=== PATIENT | male | born 1980 | race Caucasian/White ===

== ENCOUNTER 2020-04-29 03:34 | Emergency (ER) | payer SELFPAY ==
[2020-04-29] MEDS ORDERED: LORazepam 0.5 MG Tab PO ONE (04:19)
--- NOTE | 2020-04-29 04:30 | EDM.PDOC ---
ED HPI GENERAL MEDICAL PROBLEM - General Chief Complaint: General Stated Complaint: KADENKES Time Seen by Provider: 04/29/20 04:00 Source of Information: Reports: Patient, RN, RN Notes Reviewed History Limitations: Reports: No Limitations - History of Present Illness INITIAL COMMENTS - FREE TEXT/NARRATIVE: Vinicius presents to the ED with complaints of feeling "shaky". Symptoms started last night at 00:00 when Vinicius went to bed. He states that he feels nauseous with some epigastric tenderness. He admits to feeling anxious, dizzy, and weak. He felt fine yesterday and ate supper well. Denies any drug or alcohol use. Did consume a [employer] coffee (energy drink) on friday morning around 9am and again at 1600. thinks his heart may have been "fluttering" afterwards. Had a small bout of diarrhea after midnight. Denies any cardiac history. States a history of anxiety and was on "a really small pill" once daily in early 2019 that he felt did not help his anxiety. Vinicius is from [place], [place] and is up in [facility] for 2 weeks with family. Denies any fights, concerns, or issues with family or vacation stay. Also feels he may be voiding more since midnight. - Related Data Allergies Allergy/AdvReac Type Severity Reaction Status Date / Time No Known Allergies Allergy Verified 04/29/20 03:47 Home Meds: Home Meds Albuterol Sulfate [Proair Respiclick] 90 mcg IH ASDIRECTED 04/29/20 [History] Past Medical History Respiratory History: Reports: Asthma Musculoskeletal History: Reports: Fracture Psychiatric History: Reports: Anxiety, PTSD - Infectious Disease History Infectious Disease History: Reports: Chicken Pox Social & Family History - Tobacco Use Smoking Status *Q: Former Smoker Used Tobacco, but Quit: Yes Month/Year Tobacco Last Used: 2011 - Caffeine Use Caffeine Use: Reports: Coffee - Recreational Drug Use Recreational Drug Use: No ED ROS GENERAL - Review of Systems Review Of Systems: See Below Constitutional: Reports: Weakness HEENT: Reports: No Symptoms Respiratory: Reports: Shortness of Breath (at times) Cardiovascular: Reports: Palpitations Endocrine: Reports: No Symptoms GI/Abdominal: Reports: Diarrhea, Nausea : Reports: Other (sense of increase UOP) Musculoskeletal: Reports: No Symptoms Skin: Reports: No Symptoms Neurological: Reports: Dizziness Psychiatric: Reports: Anxiety Hematologic/Lymphatic: Reports: No Symptoms ED EXAM, GENERAL - Physical Exam Exam: See Below Exam Limited By: No Limitations General Appearance: Alert, Anxious Eye Exam: Bilateral Eye: PERRL Ears: Normal External Exam, Normal Canal, Hearing Grossly Normal, Normal TMs Nose: Normal Inspection, Normal Mucosa Throat/Mouth: Normal Inspection, Normal Oropharynx Head: Atraumatic, Normocephalic Neck: Supple, Non-Tender Respiratory/Chest: Lungs Clear, Normal Breath Sounds, Chest Non-Tender Cardiovascular: Normal Peripheral Pulses, Regular Rate, Rhythm, Other ( occassional PAC) Peripheral Pulses: 2+: Radial (L), Radial (R) GI/Abdominal: Normal Bowel Sounds, Soft, Tender, Other (tenderness at the epigastric region) (Male) Exam: Deferred Rectal (Males) Exam: Deferred Extremities: Normal Inspection Neurological: Alert, Oriented Psychiatric: Normal Affect, Anxious Skin Exam: Warm, Dry, Intact Lymphatic: No Adenopathy Course - Vital Signs Last Recorded V/S: Last Vital Signs Temp 96.5 F L 04/29/20 03:43 Pulse 78 04/29/20 04:55 Resp 20 04/29/20 03:43 BP 123/63 04/29/20 04:55 Pulse Ox 99 04/29/20 05:27 Orthostatic Blood Pressure [ 125/86 Standing] Orthostatic Blood Pressure [ 132/85 Sitting] Orthostatic Blood Pressure [ 125/77 Supine] - Orders/Labs/Meds Orders: Active Orders 24 hr Category Date Time Status Orthostatic Vital Signs [RC] ASDIRECTED Care 04/29/20 05:19 Active Sodium Chloride 0.9% [Normal Saline] 1,000 ml Med 04/29/20 05:45 Active IV ASDIRECTED Medication Orders Sodium Chloride (Normal Saline) 1,000 mls @ 999 mls/hr IV ASDIRECTED PRIYANKA Last Admin: 04/29/20 05:40 Dose: 999 mls/hr Labs: Laboratory Tests 04/29/20 04/29/20 04/29/20 Range/Units 04:26 04:30 04:30 WBC 11.9 H (4.5-11.0) K/uL RBC 5.14 (4.30-5.90) M/uL Hgb 15.1 H (12.0-15.0) g/dL Hct 45.5 (40.0-54.0) % MCV 89 (80-98) fL MCH 29 (27-31) pg MCHC 33 (32-36) % Plt Count 287 (150-400) K/uL Neut % (Auto) 86 H (36-66) % Lymph % (Auto) 8 L (24-44) % Randolph % (Auto) 6 (2-6) % Eos % (Auto) 0 L (2-4) % Baso % (Auto) 0 (0-1) % Sodium 141 (140-148) mmol/L Potassium 3.4 L (3.6-5.2) mmol/L Chloride 104 (100-108) mmol/L Carbon Dioxide 25 (21-32) mmol/L Anion Gap 15.4 H (5.0-14.0) mmol/L BUN 15 (7-18) mg/dL Creatinine 1.2 (0.8-1.3) mg/dL Est Cr Clr Drug Dosing 94.33 mL/min Estimated GFR (MDRD) > 60 (>60) Glucose 144 H (74-106) mg/dL Calcium 9.0 (8.5-10.1) mg/dL Total Bilirubin (0.2-1.0) mg/dL Direct Bilirubin (0.0-0.2) mg/dL Indirect Bilirubin AST (15-37) U/L ALT (12-78) U/L Alkaline Phosphatase (46-116) U/L Total Protein (6.4-8.2) g/dL Albumin (3.4-5.0) g/dL Globulin (2.3-3.5) g/dL Albumin/Globulin Ratio (1.2-2.2) TSH, Ultra Sensitive 3.467 (0.358-3.740) uIU/mL Urine Color (YELLOW) Urine Appearance (CLEAR) Urine pH (5.0-8.0) Ur Specific [place] (1.008-1.030) Urine Protein (NEGATIVE) mg/dL Urine Glucose (UA) (NEGATIVE) mg/dL Urine Ketones (NEGATIVE) mg/dL Urine Occult Blood (NEGATIVE) Urine Nitrite (NEGATIVE) Urine Bilirubin (NEGATIVE) Urine Urobilinogen (0.2-1.0) EU/dL Ur Leukocyte Esterase (NEGATIVE) Urine RBC (0-5) Urine WBC (0-5) Ur Epithelial Cells Amorphous Sediment Urine Bacteria Urine Mucus Urine Opiates Screen Negative (NEGATIVE) Ur Oxycodone Screen Negative (NEGATIVE) Urine Methadone Screen Negative (NEGATIVE) Ur Propoxyphene Screen Negative (NEGATIVE) Ur Barbiturates Screen Negative (NEGATIVE) Ur Tricyclics Screen Negative (NEGATIVE) Ur Phencyclidine Scrn Negative (NEGATIVE) Ur Amphetamine Screen Negative (NEGATIVE) U Methamphetamines Scrn Negative (NEGATIVE) Urine MDMA Screen Negative (NEGATIVE) U Benzodiazepines Scrn Negative (NEGATIVE) U Cocaine Metab Screen Negative (NEGATIVE) U Marijuana (THC) Screen Negative (NEGATIVE) 04/29/20 04/29/20 Range/Units 04:30 05:27 WBC (4.5-11.0) K/uL RBC (4.30-5.90) M/uL Hgb (12.0-15.0) g/dL Hct (40.0-54.0) % MCV (80-98) fL MCH (27-31) pg MCHC (32-36) % Plt Count (150-400) K/uL Neut % (Auto) (36-66) % Lymph % (Auto) (24-44) % Randolph % (Auto) (2-6) % Eos % (Auto) (2-4) % Baso % (Auto) (0-1) % Sodium (140-148) mmol/L Potassium (3.6-5.2) mmol/L Chloride (100-108) mmol/L Carbon Dioxide (21-32) mmol/L Anion Gap (5.0-14.0) mmol/L BUN (7-18) mg/dL Creatinine (0.8-1.3) mg/dL Est Cr Clr Drug Dosing mL/min Estimated GFR (MDRD) (>60) Glucose (74-106) mg/dL Calcium (8.5-10.1) mg/dL Total Bilirubin 0.5 (0.2-1.0) mg/dL Direct Bilirubin 0.09 (0.0-0.2) mg/dL Indirect Bilirubin TNP AST 32 (15-37) U/L ALT 60 (12-78) U/L Alkaline Phosphatase 77 (46-116) U/L Total Protein 7.7 (6.4-8.2) g/dL Albumin 4.5 (3.4-5.0) g/dL Globulin 3.2 (2.3-3.5) g/dL Albumin/Globulin Ratio 1.4 (1.2-2.2) TSH, Ultra Sensitive (0.358-3.740) uIU/mL Urine Color Yellow (YELLOW) Urine Appearance Clear (CLEAR) Urine pH 6.0 (5.0-8.0) Ur Specific [place] 1.020 (1.008-1.030) Urine Protein Negative (NEGATIVE) mg/dL Urine Glucose (UA) Negative (NEGATIVE) mg/dL Urine Ketones Negative (NEGATIVE) mg/dL Urine Occult Blood Negative (NEGATIVE) Urine Nitrite Negative (NEGATIVE) Urine Bilirubin Negative (NEGATIVE) Urine Urobilinogen 0.2 (0.2-1.0) EU/dL Ur Leukocyte Esterase Negative (NEGATIVE) Urine RBC 0-5 (0-5) Urine WBC 0-5 (0-5) Ur Epithelial Cells Rare Amorphous Sediment Not seen Urine Bacteria Not seen Urine Mucus Not seen Urine Opiates Screen (NEGATIVE) Ur Oxycodone Screen (NEGATIVE) Urine Methadone Screen (NEGATIVE) Ur Propoxyphene Screen (NEGATIVE) Ur Barbiturates Screen (NEGATIVE) Ur Tricyclics Screen (NEGATIVE) Ur Phencyclidine Scrn (NEGATIVE) Ur Amphetamine Screen (NEGATIVE) U Methamphetamines Scrn (NEGATIVE) Urine MDMA Screen (NEGATIVE) U Benzodiazepines Scrn (NEGATIVE) U Cocaine Metab Screen (NEGATIVE) U Marijuana (THC) Screen (NEGATIVE) Meds: Medications Generic Name Dose Route Start Last Admin Trade Name Freq PRN Reason Stop Dose Admin Sodium Chloride 1,000 mls @ 999 mls/hr 04/29/20 05:45 04/29/20 05:40 Normal Saline IV 999 mls/hr ASDIRECTED PRIYANKA Administration Discontinued Medications Generic Name Dose Route Start Last Admin Trade Name Freq PRN Reason Stop Dose Admin Lorazepam 0.5 mg 04/29/20 04:19 04/29/20 04:26 Ativan PO 04/29/20 04:20 0.5 mg ONETIME ONE Administration Ondansetron HCl 4 mg 04/29/20 05:32 04/29/20 05:42 Zofran IVPUSH 04/29/20 05:33 4 mg ONETIME ONE Administration - Re-Assessments/Exams Free Text/Narrative Re-Assessment/Exam: 04/29/20 05:35 Vinicius continues to feel dizzy and nauseous. orthostatic blood pressures were reassuring. labs reviewed and shows some mild dehydration. A liter of fluids will be given along with some zofran. 04/29/20 06:26 Patient is feeling better with IVF and zofran. Departure - Departure Time of Disposition: 06:31 Disposition: Home, Self-Care 01 Clinical Impression: Anxiety, Nausea, Dehydration, mild, PAC (premature atrial contraction), Caffeine-induced anxiety disorder - Discharge Information *PRESCRIPTION DRUG MONITORING PROGRAM REVIEWED*: No *COPY OF PRESCRIPTION DRUG MONITORING REPORT IN PATIENT ADONIS: No Instructions: Dehydration, Adult, [id number] Referrals: PCP,None [Primary Care Provider] - Forms: ED Department Discharge Additional Instructions: Discharge home. Advised Vinicius to limit caffeine intake and increase water/ fluid intake. Rest today and increase activity as tolerated. Your glucose was elevated at 144- follow-up with your PCP regarding this. If you develop chest pain, fever, severe headache, or any other concerning symptoms, return for reevaluation or see your PCP Sepsis Event Note - Evaluation Sepsis Screening Result: No Definite Risk - Focused Exam Vital Signs: Vital Signs Temp Pulse Resp BP Pulse Ox 04/29/20 05:27 99 04/29/20 04:55 78 123/63 04/29/20 03:43 96.5 F L 83 20 153/70 H 99 Date Exam was Performed: 04/29/20 Time Exam was Performed: 05:50 - Assessment/Plan Plan: Discharge home. Advised Vinicius to limit caffeine intake and increase water/ fluid intake. Rest today and increase activity as tolerated. Your glucose was elevated at 144- follow-up with your PCP regarding this. If you develop chest pain, fever, severe headache, or any other concerning symptoms, return for reevaluation or see your PCP
[2020-04-29] MEDS ORDERED: Ondansetron 4 MG/2 ML SDV IVPUSH ONE (05:32)
[2020-04-29] MEDS ORDERED: Sodium Chloride 0.9% 1,000 ML IV SCH (05:45)
== END 2020-04-29 06:43 | disposition home or self-care (01) ==
LOC: JP.ED 03:34
DX: F15.980 Other stimulant use, unspecified with stimulant-induced anxiety disorder (principal); I49.1 Atrial premature depolarization; E86.0 Dehydration; R11.0 Nausea; Z87.891 Personal history of nicotine dependence
CPT/HCPCS: 36415; 80048; 80076; 80305; 81001; 84443; 85025; 93005; A9270; J2405; J7030; 93010